=== PATIENT | male | born 1980 | race Caucasian/White ===

== ENCOUNTER 2019-02-21 22:04 | Emergency (ER) | payer OTHER ==
[~2019-02-21] VITALS: Ht 175.3 cm; Wt 70.0 kg
[2019-02-21 22:31] VITALS: BP 95/56
== END 2019-02-22 00:05 | disposition home or self-care (01) ==
LOC: ED 23:59
DX: M77.9 Enthesopathy, unspecified (principal)
CPT/HCPCS: 99283